=== PATIENT | female | born 1935 | race Caucasian/White ===

== ENCOUNTER 2018-07-27 15:07 | Emergency (ER) | payer OTHER ==
[~2018-07-27] VITALS: Ht 152.4 cm; Wt 48.5 kg
--- NOTE | 2018-07-27 15:07 | NUR ---
PT [facility] FROM [facility]; WITNESSED [facility] AT FACILITY. PT VOMITTED AND ASPIRATED EN ROUTE; PT IN 15LPM NON-REBREATHER DANCE THERAPIST, PT AOX0, NON-VERBAL, NOTED WITH EMESIS AT BS, PLACED PT IN BED 5, MD AND RT AT BEDSIDE
--- NOTE | 2018-07-27 15:14 | NUR ---
[facility]PO[facility] WITH JOHNNY TO MAKE INTIAL FIRST CALL.
--- NOTE | 2018-07-27 15:16 | NUR ---
ROCURENIUM 70MG IVP AND ETOMIDATE 20MG IVP GIVEN FOR RSI
--- NOTE | 2018-07-27 15:18 | NUR ---
PT ASPIRATED VOMIT, UNABLE TO MAINTAIN PATENT AIRWAY; RSI DONE BY , ET TUBE 7.0 22 AT THE LIP AND SECURED. O2 SAT @100%, PT COLOR IS PINK, SKIN IS WARM AND DRY.
[2018-07-27] MEDS ORDERED: PROPOFOL 100 ML ONE (15:19)
[2018-07-27 15:23] VITALS: BP 99/64
--- NOTE | 2018-07-27 15:23 | NUR ---
RT NOTE: LATE ENTRY- @1518-ASSISTED WITH ORAL INTUBATION. PHYSICIAN USED 7.0 ETT AND WAS SECURED AT 22 CM MID LIP LINE. POSITIVE COLOR CHANGE AND CAPNOMETER. BILATERAL B/S NOTED. PATIENT WAS THEN PLACED ON PB 840 VENT. VENT SETTINGS PER MD ORDER. SUCTIONED AND LAVAGED MODERATE AMOUNT OF THICK BUTLER/BLOODY SECRETIONS. AMBU BAG AT [facility].
[2018-07-27 15:48] LABS: BASOPHILS % (AUTO) 0.4 % (0.0-2.0); EOSINOPHILS % (AUTO) 2.8 % (0.0-6.0); HEMATOCRIT 36 % (33-45); LYMPHOCYTES # (AUTO) 2.4 /CMM (0.8-4.8); LYMPHOCYTES % (AUTO) 19.4 % (20.0-44.0); MEAN CORPUSCULAR HGB CONC 33 g/dl (31.0-36.0); MEAN CORPUSCULAR VOLUME 86 fL (82-100); MONOCYTES % (AUTO) 7.9 % (2.0-12.0); NEUTROPHILS # (AUTO) 8.5 /CMM (1.8-8.9); NEUTROPHILS % (AUTO) 69.5 % (43.0-81.0); PLATELET COUNT (AUTO) 370 /CMM (150-450); RED BLOOD CELL COUNT(AUTO) 4.22 MIL/uL (4.0-5.2); WHITE BLOOD COUNT (AUTO) 12.3 K/uL (4.3-11.0)
[2018-07-27] MEDS ORDERED: LOVA40TA2 PO (15:48)
[2018-07-27] MEDS ORDERED: METF-440 PO (15:48)
[2018-07-27] MEDS ORDERED: FERR325T23 PO (15:48)
[2018-07-27] MEDS: ROCURONIUM BROMIDE 50 MG/5 ML IV ONE (15:48)
[2018-07-27] MEDS ORDERED: LOSA50TA39 PO (15:48)
[2018-07-27] MEDS ORDERED: POTA10TA15 PO (15:48)
[2018-07-27] MEDS ORDERED: SERT25TA PO (15:48)
[2018-07-27] MEDS ORDERED: ATEN50TA PO (15:48)
[2018-07-27] MEDS ORDERED: FURO-145 PO (15:48)
[2018-07-27] MEDS ORDERED: ALEN70SO3 PO (15:48)
[2018-07-27] MEDS ORDERED: CLOP75TA15 PO (15:48)
[2018-07-27] MEDS ORDERED: CHOL100044 PO (15:48)
[2018-07-27] MEDS: ETOMIDATE 2 MG/ML VIAL IV ONE (15:48)
[2018-07-27] MEDS ORDERED: AMLO10TA7 PO (15:48)
[2018-07-27] MEDS: LEVETIRACETAM (500MG) 1,000 MG in IV NS 0.9% 100 ML IV STA (15:48)
[2018-07-27] MEDS: IV NS 0.9% 1,000 ML BAG IV ONE (15:48)
[2018-07-27 15:56] LABS: CALCIUM, SERUM 8.7 mg/dL (8.5-10.1); CARBON DIOXIDE 24 mmol/L (21-32); CHLORIDE 98 mmol/L (98-107); CREATININE 0.8 mg/dL (0.6-1.3); GLUCOSE 202 mg/dL (74-106); POTASSIUM 3.1 mmol/L (3.5-5.1); SODIUM SERUM 137 mmol/L (136-145); UREA NITROGEN, BLOOD 13 mg/dL (7-18)
[2018-07-27] MEDS ORDERED: IOHEXOL-350 100 ML VIAL IV ONE (15:57)
[2018-07-27] MEDS ORDERED: IV NS 0.9% 250 ML IV ONE (15:57)
[2018-07-27] MEDS ORDERED: CT SWABBABLE VALVE TRANS SET 1 EA INFUS.SET MC ONE (15:57)
--- NOTE | 2018-07-27 16:08 | NUR ---
TEXTED FOR MRI APPROVAL.
[2018-07-27] MEDS ORDERED: POTASSIUM CHLORIDE 10 MEQ/50 ML PREMIXED IVPB FOR PERIPHERAL LINE IV ONE (16:30)
[2018-07-27] MEDS: PROPOFOL 100 ML IV PRN (16:52)
--- NOTE | 2018-07-27 17:05 | NUR ---
CALLED [facility] SPOKE WITH JOSUE, EXPECTING A CALL FROM [facility]
[2018-07-27 17:12] LABS: APPEARANCE,URINE Clear (CLEAR); BILIRUBIN,URINE Negative (NEGATIVE); BLOOD, URINE Moderate Ery/uL (NEGATIVE); COLOR,URINE Light yellow (YELLOW); KETONES,URINE Negative (NEGATIVE); LEUKOCYTE ESTERASE ,URINE Negative (NEGATIVE); NITRITE, URINE Negative (NEGATIVE); PROTEIN,URINE Negative (NEGATIVE); UGLUCOSE 100 MG/DL mg/dL (NEGATIVE); UROBILINOGEN,URINE 0.2 EU/dL (0.2)
[2018-07-27 17:20] VITALS: BP 137/69
[2018-07-27 17:20] LABS: ABG BASE EXCESS -1.1 mmol/L; ABG OXYGEN SATURATION 98.7 % (92.0-98.5); ABG PCO2 37.1 mmHg (35.0-45.0); ABG PH 7.413 (7.350-7.450); ABG PO2 468.8 mmHg (75.0-100.0); AaDO2 207.1 mmHg; COHb 0.2 % (0.5-1.5); MetHb 0.4 % (0.0-1.5); O2Hb 98.1 % (94.0-97.0); PEEP,BG 0 cm H2O; SITE, ABG Right Radial; VT, ABG 450 mL
[2018-07-27 17:26] LABS: BACTERIA,URINE Few /HPF (None Seen); RBC,URINE 21-50 /HPF (0-2); WBC,URINE 0-2 /HPF (0-3)
--- NOTE | 2018-07-27 17:26 | NUR ---
ICU 254
[2018-07-27 17:27] LABS: SQUAMOUS EPITHELIAL CELL,UR Few /HPF (None Seen)
[2018-07-27] MEDS ORDERED: LEVOFLOXACIN 750 MG /D5W 150ML 750 MG in PREMIX 1 EA IV SCH (17:30)
[2018-07-27] MEDS ORDERED: CLINDAMYCIN IV RTU IN D5W 900 MG/50 ML PIGGYBACK IV SCH (17:30)
[2018-07-27] MEDS ORDERED: IV D5/0.45 NACL 1,000 ML IV PRN (17:31)
--- NOTE | 2018-07-27 17:39 | NUR ---
PER DR. MELCHOR CANCEL MRI ORDER; XRAY DEPT MADE AWARE
[2018-07-27] MEDS ORDERED: *INSULIN REGULAR(HUMULIN R)HUM 100 UNIT/ML VIAL SQ PRN (18:00)
[2018-07-27] MEDS ORDERED: MAG HYDROX/AL HYDROX/SIMETH 30 ML UDC PO PRN (18:00)
[2018-07-27] MEDS ORDERED: INSULIN REGULAR, HUMAN 100 UNIT/ML 3 ML VIAL SQ PRN (18:00)
[2018-07-27] MEDS ORDERED: DEXTROSE 50%-WATER 50 ML DISP.SYRIN IV PRN (18:00)
[2018-07-27] MEDS ORDERED: ENOXAPARIN SODIUM 40 MG/0.4 ML DISP.SYRIN SQ SCH (18:00)
[2018-07-27] MEDS ORDERED: Z GUARD REMEDY 2 OZ OINT TP PRN (18:00)
[2018-07-27] MEDS ORDERED: ONDANSETRON HCL/PF 4 MG/2 ML VIAL IVP PRN (18:00)
[2018-07-27] MEDS ORDERED: LORAZEPAM INJ 2 MG/ML VIAL IV PRN (18:00)
[2018-07-27] MEDS ORDERED: LEVETIRACETAM (500MG) 500 MG in IV NS 0.9% 100 ML IV SCH (18:00)
[2018-07-27] MEDS ORDERED: MAGNESIUM HYDROXIDE 30 ML UDC PO PRN (18:00)
[2018-07-27] MEDS ORDERED: ZOLPIDEM TARTRATE 5 MG TABLET PO PRN (18:00)
[2018-07-27] MEDS ORDERED: ACETAMINOPHEN 325 MG TABLET PO PRN (18:00)
[2018-07-27] MEDS ORDERED: ACETAMINOPHEN 650 MG/SUPP.RECT RC PRN (18:00)
--- NOTE | 2018-07-27 18:32 | NUR ---
[facility]
--- NOTE | 2018-07-27 19:14 | NUR ---
[facility] CALLED WITH TX INFO [facility] [id number] SMITH
[2018-07-27 19:21] LABS: CHOLESTEROL 152 mg/dL (<200); HDL CHOLESTEROL 50 mg/dL (40-60); LDL 83 mg/dL (0-99); TRIGLYCERIDES 96 mg/dL (30-150)
--- NOTE | 2018-07-27 19:51 | NUR ---
report given to charge nurse in [facility] for [facility]gi
[2018-07-27 20:56] VITALS: BP 131/60
--- NOTE | 2018-07-27 20:57 | NUR ---
PT TRANSFERRED TO [facility] VIA PRIVATE AMBULANCE, [facility] TRAN[facility]ORT. WITH 2 MEMBERSHIP ADMINISTRATOR AND 1 RN, LEFT VIA [facility]
[2018-07-27] MEDS ORDERED: BLOOD SUGAR DIAGNOSTIC 1 EACH STRIP VI SCH (22:00)
== END 2018-07-27 20:59 | disposition short-term general hospital (02) ==
LOC: ER 15:09
DX: G93.40 Encephalopathy, unspecified (principal); R56.9 Unspecified convulsions; E87.6 Hypokalemia; F01.50 Vascular dementia, unspecified severity, without behavioral disturbance, psychotic disturbance, mood disturbance, and anxiety; E78.5 Hyperlipidemia, unspecified; I70.90 Unspecified atherosclerosis; F41.9 Anxiety disorder, unspecified; M81.0 Age-related osteoporosis without current pathological fracture; I10 Essential (primary) hypertension; E11.9 Type 2 diabetes mellitus without complications; Z88.0 Allergy status to penicillin; Z86.73 Personal history of transient ischemic attack (TIA), and cerebral infarction without residual deficits; Z88.1 Allergy status to other antibiotic agents; Z88.5 Allergy status to narcotic agent; Z88.8 Allergy status to other drugs, medicaments and biological substances; Z79.84 Long term (current) use of oral hypoglycemic drugs; Z79.899 Other long term (current) drug therapy
CPT/HCPCS: 36415; 36600; 70450-TC; 70496-TC; 70498-TC; 71045-TC; 80048-TC; 80061-TC; 81000-TC; 82803-TC; 82962-TC; 84484-TC; 85025-TC; 85730-TC; 87081-TC; 87086-TC; 94002-TC; A4216; J1815; J1953; J1956; J3490; J7030; J7050; Q9967

== ENCOUNTER 2018-12-22 19:37 | Emergency (ER) | payer OTHER ==
[~2018-12-22] VITALS: Ht 152.4 cm; Wt 48.5 kg
[~2018-12-22 19:37] MED LIST: ALEN70SO3 PO; AMLO10TA7 PO; ATEN50TA PO; CHOL100044 PO; CLOP75TA15 PO; FERR325T23 PO; FURO-145 PO; LOSA50TA39 PO; LOVA40TA2 PO; METF-440 PO; POTA10TA15 PO; SERT25TA PO
[2018-12-22] MEDS ORDERED: ONDANSETRON HCL/PF 4 MG/2 ML VIAL ONE (19:59)
[2018-12-22] MEDS ORDERED: IV NS 0.9% 500 ML BAG IV ONE (20:00)
[2018-12-22] MEDS ORDERED: ONDANSETRON HCL/PF 4 MG/2 ML VIAL IVP ONE (20:00)
--- NOTE | 2018-12-22 20:00 | NUR ---
PT BIBRA89 FROM [facility] C/O FEVER WITH VOMITING X 1 EPISODE EARLIER. PER RA PT HAD A TOOTH EXTRACTION ON TUESDAY. BASELINE MS AOX1-2. PT IS NONVERBAL. PT ON MONITOR IN BED 1. WILL CONTINUE TO MONITOR.
--- NOTE | 2018-12-22 20:00 | NUR ---
ADDENDUM: Intravenous End Time Documentation: Normal saline 500 cc (IV-WO): start time: 1999 ; end time:2029 : IV site:RH # 20 Port # 1 Ciprofloxacin 400 mg IVPB: start time: 2129 ; end time: 2229 IV site: RH # 20 Port # 2 Zithromax 500 mg IVPB: start time: 2299 ; end time: 2329 : IV site: RH # 20 Port # 1
--- NOTE | 2018-12-22 20:01 | NUR ---
TECH AT BEDSIDE FOR EKG
--- NOTE | 2018-12-22 20:13 | NUR ---
BLOOD DRAWN AND GIVEN TO LAB
--- NOTE | 2018-12-22 20:21 | NUR ---
RADIOLOGY AT BEDSIDE FOR XRAY
[2018-12-22 20:22] LABS: BASOPHILS # (AUTO) 0.2 /CMM (0.0-0.2); BASOPHILS % (AUTO) 1.2 % (0.0-2.0); EOSINOPHILS % (AUTO) 0.8 % (0.0-6.0); HEMATOCRIT 28 % (33-45); HEMOGLOBIN 9.6 g/dL (11.5-14.8); LYMPHOCYTES # (AUTO) 0.6 /CMM (0.8-4.8); LYMPHOCYTES % (AUTO) 4.7 % (20.0-44.0); MEAN CORPUSCULAR HGB CONC 34 g/dl (31.0-36.0); MEAN CORPUSCULAR VOLUME 90 fL (82-100); MONOCYTES # (AUTO) 0.7 /CMM (0.1-1.30); MONOCYTES % (AUTO) 5.6 % (2.0-12.0); NEUTROPHILS % (AUTO) 87.7 % (43.0-81.0); PLATELET COUNT (AUTO) 358 /CMM (150-450); RED BLOOD CELL COUNT(AUTO) 3.13 MIL/uL (4.0-5.2); WHITE BLOOD COUNT (AUTO) 12.6 K/uL (4.3-11.0)
[2018-12-22 20:31] LABS: CALCIUM, SERUM 8.4 mg/dL (8.5-10.1); CARBON DIOXIDE 23 mmol/L (21-32); CHLORIDE 104 mmol/L (98-107); CREATININE 1.2 mg/dL (0.6-1.3); GLUCOSE 133 mg/dL (74-106); POTASSIUM 3.7 mmol/L (3.5-5.1); SODIUM SERUM 137 mmol/L (136-145); UREA NITROGEN, BLOOD 32 mg/dL (7-18)
[2018-12-22 20:36] LABS: ALANINE AMINOTRANSFERASE 17 U/L (12-78); ALBUMIN 2.9 g/dL (3.4-5.0); ALKALINE PHOSPHATASE 103 U/L (46-116); ASPARTATE AMINOTRANSFERASE 34 U/L (15-37); BILIRUBIN,DIRECT 0.1 mg/dL (0.0-0.2); BILIRUBIN,TOTAL 0.4 mg/dL (0.2-1.0); LIPASE 366 U/L (73-393); TOTAL PROTEIN, SERUM 6.8 g/dL (6.4-8.2)
--- NOTE | 2018-12-22 20:55 | NUR ---
URINE COLLECTED AND SENT TO LAB
[2018-12-22 21:05] LABS: APPEARANCE,URINE Slightly Cloudy (CLEAR); BILIRUBIN,URINE Negative (NEGATIVE); BLOOD, URINE Trace-intact Ery/uL (NEGATIVE); COLOR,URINE Light yellow (YELLOW); KETONES,URINE Negative (NEGATIVE); LEUKOCYTE ESTERASE ,URINE Trace (NEGATIVE); NITRITE, URINE Positive (NEGATIVE); PROTEIN,URINE Trace mg/dl (NEGATIVE); UGLUCOSE Negative (NEGATIVE); UROBILINOGEN,URINE 0.2 EU/dL (0.2)
[2018-12-22 21:17] LABS: BACTERIA,URINE Moderate /HPF (None Seen); SQUAMOUS EPITHELIAL CELL,UR Few /HPF (None Seen)
[2018-12-22] MEDS ORDERED: CIPROFLOXACIN IV RTU 400 MG in PREMIX 1 EA IV SCH (21:30)
[2018-12-22] MEDS ORDERED: ASPIRIN 81 MG TAB.CHEW PO ONE (21:30)
[2018-12-22] MEDS ORDERED: CIPROFLOXACIN IV RTU 200 ML IV ONE (21:44)
[2018-12-22] MEDS ORDERED: ASPIRIN 81 MG TAB.CHEW ONE (21:44)
--- NOTE | 2018-12-22 22:18 | NUR ---
[facility] CALLED BACK ASKING REGARDING TROPONIN; STILL PENDING AT THIS TIME
[2018-12-22] MEDS ORDERED: MEROPENEM 500 MG in IV NS 0.9% 50 ML IV ONE (23:00)
--- NOTE | 2018-12-22 23:05 | NUR ---
DANIELLE CALLED FROM [facility]. PT WILL BE TX TO [facility] ACCEPTED BY DR SMITH ALS ETA 0000 NUMBER TO CALL FOR REPORT
[2018-12-22] MEDS ORDERED: MEROPENEM 500 MG VIAL IV ONE (23:13)
[2018-12-23 00:18] VITALS: BP 125/64
--- NOTE | 2018-12-23 00:19 | NUR ---
REPORT GIVEN TO MAYRA PHAM AT [facility] FOR [facility]
== END 2018-12-23 00:35 | disposition short-term general hospital (02) ==
LOC: ER 19:40
DX: I21.4 Non-ST elevation (NSTEMI) myocardial infarction (principal); N39.0 Urinary tract infection, site not specified; I10 Essential (primary) hypertension; F03.90 Unspecified dementia, unspecified severity, without behavioral disturbance, psychotic disturbance, mood disturbance, and anxiety; R47.01 Aphasia; E78.5 Hyperlipidemia, unspecified; E11.9 Type 2 diabetes mellitus without complications; F41.9 Anxiety disorder, unspecified; Z86.73 Personal history of transient ischemic attack (TIA), and cerebral infarction without residual deficits; Z88.0 Allergy status to penicillin; Z88.1 Allergy status to other antibiotic agents; Z88.5 Allergy status to narcotic agent; Z88.8 Allergy status to other drugs, medicaments and biological substances
CPT/HCPCS: 36415; 71045; 80048; 80076; 81001; 83690; 84484 ×2; 85025; 85730; 87077; 87086; 87186; 93005; 96365; 96367; 96375; 99285; A4216 ×3; J0744 ×2; J2185 ×2; J2405; J7040; 81000-TC